=== PATIENT | female | born 1985 | race Caucasian/White ===

== ENCOUNTER 2016-08-12 10:12 | Emergency (ER) | payer OTHER ==
[~2016-08-12] VITALS: Ht 165.1 cm; Wt 100.0 kg
[~2016-08-12 10:12] MED LIST: ALBUTEROL S2.5 MG/.5 IN; ALBUTEROL2.5 MG/3 M IN; AMOXICILLIN500 MG PO; CEPHALEXIN500 MG PO; CIPRO PO; CIPRO500 MG OR; CIPROFLOXACN500 MG PO; DENIES CURRENT MEDS; FERR SULFATE325 MG PO; FLAGYL500 MG OR; LORTAB 5/3255 MG PO; MEDDOSEPAK OR; MEDDOSEPAK PO; MOTRIN800 MG PO; PERCOCET 5/325M1 TAB PO; PRENATAL1 TA1 PO; PYRIDIUM200 MG OR; REGLAN10 MG OR; SEE BELOW; TYLENOL COL1 OR; ULTRAM50 M1 PO; ZPAK OR; [UNRECOGNIZED DRUG - REMARK]
[2016-08-12 10:56] LABS: URINE BILIRUBIN - DIPSTICK NEGATIVE (NEGATIVE); URINE BLOOD DIPSTICK NEGATIVE (NEGATIVE); URINE CLARITY CLEAR; URINE COLOR YELLOW; URINE GLUCOSE - DIPSTICK NEGATIVE (NEGATIVE); URINE KETONE NEGATIVE (NEGATIVE); URINE LEUK ESTERASE NEGATIVE (NEGATIVE); URINE NITRITE - DIPSTICK NEGATIVE (Negative); URINE PH 7.5 (4.5-8.0); URINE PROTEIN - DIPSTICK NEGATIVE (NEG-TRACE)
[2016-08-12 11:23] LABS: INFLUENZA A NONE DETECTED (NONE DETECT); INFLUENZA B NONE DETECTED (NONE DETECT)
[2016-08-12 12:36] LABS: HEMATOCRIT 43.4 % (37.0-47.0); HEMOGLOBIN 14.6 g/dl (12.0-16.0); IMMATURE GRANULOCYTES 0.4 % (0.0-1.0); MEAN CELL VOLUME 92.1 fL CALC (80.0-100.0); MEAN CORPUSCULAR HGB CONC 33.6 g/L CALC (32.0-36.0); NEUT# 7.13 thou/uL (2.00-7.15); RED BLOOD COUNT 4.71 mill/uL (4.20-5.60); RED CELL DISTRI WIDTH 13.1 % (11.5-15.5)
[2016-08-12 12:47] LABS: ALKALINE PHOSPHATASE 62 u/l (38-126); ANION GAP 15 (6-22 (CALC)); BILIRUBIN, TOTAL 0.9 mg/dL (0.0-1.4); BUN 12 mg/dL (7-17); BUN/CREATININE RATIO 22 (12-20 (CALC)); CALCIUM 9.2 mg/dL (8.4-10.2); CARBON DIOXIDE 25 mmol/l (22-30); CHLORIDE 100 mmol/l (95-108); CREATININE 0.5 mg/dL (0.5-1.0); GFR > 60 ML/MIN (>=60 (CALC)); GFR FOR AFR.AMER. > 60 ML/MIN (>=60 (CALC)); GLUCOSE 94 mg/dL (65-105); POTASSIUM 3.8 mmol/l (3.5-5.1); SGOT/AST 11 u/l (14-36); SGPT/ALT 27 u/l (9-52); SODIUM 136 mmol/l (137-146)
[2016-08-12 13:28] LABS: BETA-HCG, QUANT(RESULT NUMBER) 84707 mIU/mL
[2016-08-12 16:00] VITALS: BP 118/82
[2016-08-12] MEDS ORDERED: DICLEGIS1 TAB PO (16:03)
== END 2016-08-12 16:14 | disposition home or self-care (01) | DRG 781 ==
LOC: ED 10:12
PROVIDERS: Emergency Medicine
DX: O26.891 Other specified pregnancy related conditions, first trimester (principal); J45.909 Unspecified asthma, uncomplicated; R11.10 Vomiting, unspecified; O99.511 Diseases of the respiratory system complicating pregnancy, first trimester; Z3A.01 Less than 8 weeks gestation of pregnancy

== ENCOUNTER 2016-10-12 14:49 | Emergency (ER) | payer OTHER ==
[~2016-10-12] VITALS: Ht 165.1 cm; Wt 105.0 kg
[~2016-10-12 14:49] MED LIST changes: +DICLEGIS1 TAB PO
[2016-10-12 17:14] LABS: HEMATOCRIT 35.9 % (37.0-47.0); HEMOGLOBIN 12.2 g/dl (12.0-16.0); IMMATURE GRANULOCYTES 0.1 % (0.0-1.0); MEAN CELL VOLUME 92.8 fL CALC (80.0-100.0); MEAN CORPUSCULAR HGB 31.5 pG CALC (26.0-32.0); NEUT# 4.45 thou/uL (2.00-7.15); RED BLOOD COUNT 3.87 mill/uL (4.20-5.60); RED CELL DISTRI WIDTH 13.6 % (11.5-15.5)
[2016-10-12 17:27] LABS: ALBUMIN 3.7 g/dL (3.2-5.0); ALKALINE PHOSPHATASE 47 u/l (38-126); ANION GAP 11 (6-22 (CALC)); BILIRUBIN, TOTAL 0.4 mg/dL (0.0-1.4); BUN 14 mg/dL (7-17); BUN/CREATININE RATIO 25 (12-20 (CALC)); CALCIUM 8.8 mg/dL (8.4-10.2); CARBON DIOXIDE 23 mmol/l (22-30); CHLORIDE 103 mmol/l (95-108); CREATININE 0.6 mg/dL (0.5-1.0); GFR > 60 ML/MIN (>=60 (CALC)); GFR FOR AFR.AMER. > 60 ML/MIN (>=60 (CALC)); GLUCOSE 80 mg/dL (65-105); SGOT/AST 23 u/l (14-36); SGPT/ALT 31 u/l (9-52); SODIUM 133 mmol/l (137-146); TOTAL PROTEIN 6.8 g/dL (6.3-8.2)
[2016-10-12 17:38] LABS: URINE BILIRUBIN - DIPSTICK NEGATIVE (NEGATIVE); URINE BLOOD DIPSTICK NEGATIVE (NEGATIVE); URINE CLARITY CLEAR; URINE COLOR YELLOW; URINE GLUCOSE - DIPSTICK NEGATIVE (NEGATIVE); URINE KETONE NEGATIVE (NEGATIVE); URINE LEUK ESTERASE NEGATIVE (NEGATIVE); URINE NITRITE - DIPSTICK NEGATIVE (Negative); URINE PROTEIN - DIPSTICK NEGATIVE (NEG-TRACE); URINE UROBILINOGEN - DIPSTICK 0.2 E.U./dL (0.2)
[2016-10-12 17:42] LABS: BARBITURATES NEGATIVE (NEGATIVE); COCAINE NEGATIVE (NEGATIVE); METHADONE NEGATIVE (NEGATIVE); OXCYCODONE NEGATIVE (NEGATIVE); TETRAHYDROCANNABIONOL NEGATIVE (NEGATIVE); TRICYLIC ANTIDEPRESSANTS NEGATIVE (NEGATIVE)
[2016-10-12] MEDS ORDERED: AMOXICILLIN500 MG PO (17:54)
[2016-10-12 18:15] VITALS: BP 131/59
[2016-10-12 18:21] LABS: BETA-HCG, QUANT(RESULT NUMBER) 24133 mIU/mL
== END 2016-10-12 18:15 | disposition home or self-care (01) | DRG 781 ==
LOC: ED 14:49
PROVIDERS: Emergency Medicine
DX: O98.512 Other viral diseases complicating pregnancy, second trimester (principal); R50.9 Fever, unspecified; J02.0 Streptococcal pharyngitis; G43.909 Migraine, unspecified, not intractable, without status migrainosus; Z3A.16 16 weeks gestation of pregnancy

== ENCOUNTER 2020-02-26 22:20 | Emergency (ER) | payer OTHER ==
[~2020-02-26] VITALS: Ht 165.1 cm; Wt 105.0 kg
[2020-02-26] MEDS ORDERED: MOTRIN800 MG PO (23:07)
[2020-02-26] MEDS ORDERED: AMOXICILLIN500 MG PO (23:07)
[2020-02-26] MEDS ORDERED: TRAMADOL HCL50 MG PO (23:07)
[2020-02-26 23:40] VITALS: BP 118/73
== END 2020-02-26 23:40 | disposition home or self-care (01) ==
LOC: ED 22:20
DX: K04.7 Periapical abscess without sinus (principal); M84.48XA Pathological fracture, other site, initial encounter for fracture

== ENCOUNTER 2020-05-08 22:28 | Emergency (ER) | payer OTHER ==
[~2020-05-08] VITALS: Ht 165.1 cm; Wt 105.5 kg
[~2020-05-08 22:28] MED LIST changes: +TRAMADOL HCL50 MG PO
[2020-05-08 23:30] VITALS: BP 129/70
[2020-05-08] MEDS ORDERED: ONDANSETRON4 MG PO (23:33)
[2020-05-08] MEDS ORDERED: AMOXICILLIN500 MG PO (23:33)
== END 2020-05-08 23:44 | disposition home or self-care (01) ==
LOC: ED 22:28
DX: K04.7 Periapical abscess without sinus (principal); M84.48XA Pathological fracture, other site, initial encounter for fracture; J45.909 Unspecified asthma, uncomplicated